=== PATIENT | male | born 1995 | race Two or more races ===

== ENCOUNTER 2022-10-21 11:04 | Day surgery (SDC) | payer OTHER ==
[~2022-10-21 11:04] MED LIST: Lactated Ringers 1,000 ML IV SCH
[2022-10-21] MEDS ORDERED: Lidocaine 2% 5 ML SDV ONE (12:10)
[2022-10-21] MEDS ORDERED: Propofol 200 MG/20 ML SDV ONE (12:10)
[2022-10-21] MEDS ORDERED: Lactated Ringers 1,000 ML IV SCH (13:00)
== END 2022-10-21 13:58 | disposition home or self-care (01) ==
LOC: MW.SDS 11:04
PROVIDERS: ATTEND Surgery
DX: K29.50 Unspecified chronic gastritis without bleeding (principal); B96.81 Helicobacter pylori [H. pylori] as the cause of diseases classified elsewhere; G89.29 Other chronic pain; F41.9 Anxiety disorder, unspecified; Z79.899 Other long term (current) drug therapy; Z83.79 Family history of other diseases of the digestive system
CPT/HCPCS: 43239; J2704; J7120; 00731; J3490

== ENCOUNTER 2023-08-19 14:43 | Emergency (ER) | payer SELFPAY ==
[2023-08-19] MEDS: Alum Hydro/Mag Hydro/Simeth XS 15 ML, Metoclopramide 5 MG, Lidocaine 2% 5 ML PO ONE (15:00)
[2023-08-19] MEDS: Sodium Chloride 0.9% 1,000 ML IV ONE (15:00)
[2023-08-19 15:03] LABS: BASOPHILS ABSOLUTE AUTO 0.05 K/uL (0.00-0.20); BASOPHILS PERCENT AUTO 0.9 % (0.0-1.0); EOSINOPHILS PERCENT AUTO 1.8 % (0.0-6.0); HEMATOCRIT 39.9 % (42.0-52.0); IMMATURE GRAN ABSOLUTE AUTO 0.02 K/uL (0.00-0.05); IMMATURE GRAN PERCENT AUTO 0.4 % (0.0-0.4); LYMPHOCYTES PERCENT AUTO 34.4 % (24.0-44.0); MEAN CORPUSCULAR HEMOGLOBIN 29.9 pg (28.0-32.0); MEAN CORPUSCULAR HGB CONC 35.1 g/dL (32.0-36.0); MEAN CORPUSCULAR VOLUME 85.3 fL (83.0-99.0); MONOCYTES ABSOLUTE AUTO 0.64 K/uL (0.00-0.80); MONOCYTES PERCENT AUTO 11.6 % (0.0-8.0); NEUTROPHILS ABSOLUTE AUTO 2.82 K/uL (1.80-7.70); NEUTROPHILS PERCENT AUTO 50.9 % (41.0-71.0); PLATELET COUNT,PLT 340 K/uL (150-400); RED BLOOD CELL COUNT 4.68 M/uL (4.52-5.90); WHITE BLOOD CELL COUNT,WBC 5.53 K/uL (3.9-11.3)
[2023-08-19 15:25] LABS: A/G RATIO 0.8 (0.9-1.6); ALANINE AMINOTRANSFERASE,ALT 25 IU/L (14-63); ALBUMIN 3.7 g/dL (3.4-5.0); ALKALINE PHOSPHATASE 108 U/L (46-116); ASPARTATE AMNIOTRANSFERASE,AST 21 IU/L (15-37); BILIRUBIN TOTAL 0.2 mg/dL (0.2-1.0); BLOOD UREA NITROGEN,BUN 20 mg/dL (7.0-18.0); CALCIUM 9.1 mg/dL (8.5-10.1); CARBON DIOXIDE,CO2 26.8 mmol/L (21.0-32.0); CHLORIDE,CL 101 mmol/L (98-107); CREATININE 0.9 mg/dL (0.8-1.3); ESTIMATED GFR 119 mL/min (>60); GLUCOSE RANDOM 114 mg/dL (74-106); LIPASE 57 U/L (16-77); PROTEIN TOTAL,TP 8.1 g/dL (6.4-8.2); SODIUM,NA 138 mmol/L (136-148)
[2023-08-19 16:14] LABS: CORONAVIRUS COVID-19 NAA NEGATIVE (NEGATIVE); INFLUENZA A NAA NEGATIVE (NEGATIVE); INFLUENZA B NAA NEGATIVE (NEGATIVE)
== END 2023-08-19 16:06 | disposition home or self-care (01) ==
LOC: MW.ED 14:43
DX: K21.9 Gastro-esophageal reflux disease without esophagitis (principal); Z86.73 Personal history of transient ischemic attack (TIA), and cerebral infarction without residual deficits; Z79.899 Other long term (current) drug therapy
CPT/HCPCS: 0240U; 36415; 80053; 83690; 84484; 85025; 93005; 96360; 99285; A9270; J7030; 93010; 99283

== ENCOUNTER 2023-11-08 11:33 | Inpatient (IN) | payer OTHER ==
[2023-11-08] MEDS: Morphine 2 MG/ML SYRINGE IVPUSH ONE ×2 (11:55→13:27)
[2023-11-08] MEDS: Ondansetron 4 MG/2 ML SDV IVPUSH ONE (11:56)
[2023-11-08] MEDS: Sodium Chloride 0.9% 10 ML Syringe FLUSH PRN (11:56)
[2023-11-08] MEDS: Sodium Chloride 0.9% 2.5 ML Syringe FLUSH PRN (11:56)
[2023-11-08] MEDS: Pantoprazole 80 MG in Sodium Chloride 0.9% 10 ML IVPUSH ONE (11:56)
[2023-11-08 12:00] LABS: BASOPHILS ABSOLUTE AUTO 0.02 K/uL (0.00-0.20); BASOPHILS PERCENT AUTO 0.3 % (0.0-1.0); EOSINOPHILS ABSOLUTE AUTO 0.05 K/uL (0.00-0.45); EOSINOPHILS PERCENT AUTO 0.8 % (0.0-6.0); HEMATOCRIT 37.9 % (42.0-52.0); HEMOGLOBIN 13.5 g/dL (14.0-18.0); IMMATURE GRAN ABSOLUTE AUTO 0.01 K/uL (0.00-0.05); IMMATURE GRAN PERCENT AUTO 0.2 % (0.0-0.4); LYMPHOCYTES ABSOLUTE AUTO 1.74 K/uL (1.00-4.80); LYMPHOCYTES PERCENT AUTO 26.7 % (24.0-44.0); MEAN CORPUSCULAR HEMOGLOBIN 30.3 pg (28.0-32.0); MEAN CORPUSCULAR HGB CONC 35.6 g/dL (32.0-36.0); MEAN PLATELET VOLUME 9.4 fL (9.4-12.4); MONOCYTES ABSOLUTE AUTO 0.54 K/uL (0.00-0.80); MONOCYTES PERCENT AUTO 8.3 % (0.0-8.0); NEUTROPHILS ABSOLUTE AUTO 4.15 K/uL (1.80-7.70); NEUTROPHILS PERCENT AUTO 63.7 % (41.0-71.0); PLATELET COUNT,PLT 245 K/uL (150-400); RED BLOOD CELL COUNT 4.46 M/uL (4.52-5.90); WHITE BLOOD CELL COUNT,WBC 6.51 K/uL (3.9-11.3)
[2023-11-08 12:49] LABS: ALANINE AMINOTRANSFERASE,ALT 24 IU/L (14-63); ALKALINE PHOSPHATASE 101 U/L (46-116); ASPARTATE AMNIOTRANSFERASE,AST 19 IU/L (15-37); BILIRUBIN TOTAL 0.3 mg/dL (0.2-1.0); BLOOD UREA NITROGEN,BUN 10 mg/dL (7.0-18.0); CALCIUM 8.8 mg/dL (8.5-10.1); CARBON DIOXIDE,CO2 29.3 mmol/L (21.0-32.0); CHLORIDE,CL 98 mmol/L (98-107); CREATININE 0.9 mg/dL (0.8-1.3); EST CRCL DRUG DOSING (CG) 126.17 mL/min; GLUCOSE RANDOM 148 mg/dL (74-106); LIPASE 66 U/L (16-77); MAGNESIUM 1.8 mg/dL (1.8-2.4); POTASSIUM,K 3.5 mmol/L (3.5-5.1); SODIUM,NA 137 mmol/L (136-148)
[2023-11-08 12:51] LABS: ESTIMATED GFR 119 mL/min (>60)
[2023-11-08] MEDS: Iopamidol 755 MG/ML 500 ML Multipack Bottle IVPUSH STA (13:19)
[2023-11-08] MEDS: Sodium Chloride 0.9% 1,000 ML IV ONE (13:52)
[2023-11-08] MEDS: Piperacillin/Tazobactam 4.5 GM in Sodium Chloride 0.9% 100 ML IV ONE (13:52)
[2023-11-08] MEDS: Morphine 4 MG/ML Syringe IVPUSH ONE (14:11)
[2023-11-08] MEDS ORDERED: Sodium Chloride 0.9% 20 ML SDV IV PRN (14:17)
[2023-11-08] MEDS ORDERED: Sodium Chloride 0.9% 2.5 ML Syringe FLUSH PRN (14:17)
[2023-11-08] MEDS: HYDROmorphone 1 MG/ML Syringe IVPUSH ONE ×2 (14:17→17:35)
[2023-11-08] MEDS ORDERED: Sodium Chloride 0.9% 10 ML Syringe FLUSH PRN (14:17)
[2023-11-08] MEDS: Lidocaine 2% 11 ML Jelly Filled Syringe MUCMEM STA (14:19)
[2023-11-08] MEDS: Benzocaine 20% Topical Spray UD MUCMEM ONE (14:19)
[2023-11-08] MEDS ORDERED: Dexamethasone 4 MG/ML 5 ML MDV ONE (14:33)
[2023-11-08] MEDS ORDERED: Ondansetron 4 MG/2 ML SDV ONE (14:33)
[2023-11-08] MEDS ORDERED: Sugammadex Sodium 200 MG/2 ML VIAL IV ONE (14:33)
[2023-11-08] MEDS ORDERED: Propofol 200 MG/20 ML SDV ONE (14:33)
[2023-11-08] MEDS ORDERED: Rocuronium Bromide 50 MG/5 ML Syringe ONE (14:33)
[2023-11-08] MEDS ORDERED: Lidocaine 2% 5 ML SDV ONE (14:33)
[2023-11-08] MEDS ORDERED: Ketorolac 30 MG/ML SDV ONE (14:33)
[2023-11-08] MEDS ORDERED: fentaNYL 250 MCG/5 ML SDV ONE (14:34)
[2023-11-08] MEDS ORDERED: Ropivacaine 0.5% 5 MG/ML 30 ML SDV ONE ×2 (14:40→14:41)
[2023-11-08] MEDS ORDERED: Bupivacaine 0.5% 30 ML SDV ONE ×2 (14:52→16:15)
[2023-11-08] MEDS ORDERED: Ketamine HCL/NACL, ISO-OSM 50 MG/5 ML Syringe ONE (15:24)
[2023-11-08] MEDS ORDERED: dexmedeTOMIDine HCl 200 MCG/2 ML SDV ONE (15:43)
[2023-11-08] MEDS ORDERED: diphenhydrAMINE 50 MG/ML SDV IVPUSH PRN (16:59)
[2023-11-08] MEDS ORDERED: Promethazine 25 MG/ML SDV IM PRN (16:59)
[2023-11-08] MEDS: Lactated Ringers 1,000 ML IV SCH (19:03)
[2023-11-08] MEDS: Phenol 1.4% Oral Spray 177 ML Bottle MUCMEM PRN (19:04)
[2023-11-08] MEDS: Ketorolac 30 MG/ML SDV IM SCH (20:55)
[2023-11-08] MEDS: Piperacillin/Tazobactam 4.5 GM in Sodium Chloride 0.9% 100 ML IV SCH (20:56)
[2023-11-09 06:09] LABS: HEMATOCRIT 32.2 % (42.0-52.0); HEMOGLOBIN 11.2 g/dL (14.0-18.0); MEAN CORPUSCULAR HEMOGLOBIN 29.9 pg (28.0-32.0); MEAN CORPUSCULAR HGB CONC 34.8 g/dL (32.0-36.0); MEAN CORPUSCULAR VOLUME 86.1 fL (83.0-99.0); MEAN PLATELET VOLUME 9.3 fL (9.4-12.4); PLATELET COUNT,PLT 247 K/uL (150-400); RED BLOOD CELL COUNT 3.74 M/uL (4.52-5.90); WHITE BLOOD CELL COUNT,WBC 12.26 K/uL (3.9-11.3)
[2023-11-09 06:28] LABS: CALCIUM 8.2 mg/dL (8.5-10.1); CARBON DIOXIDE,CO2 26.4 mmol/L (21.0-32.0); CREATININE 0.9 mg/dL (0.8-1.3); EST CRCL DRUG DOSING (CG) 126.17 mL/min; POTASSIUM,K 3.8 mmol/L (3.5-5.1)
[2023-11-09] MEDS: HYDROmorphone 0.5 MG/0.5 ML Syringe IVPUSH PRN (08:18)
[2023-11-09 08:41] LABS: MAGNESIUM 1.7 mg/dL (1.8-2.4); PHOSPHORUS 5.2 mg/dL (2.6-4.7)
[2023-11-09] MEDS: Enoxaparin 40 MG/0.4 ML Syringe SUBCUT SCH (09:14)
[2023-11-09] MEDS: Magnesium Sulfate/Water 2 GM in Premix Bag 1 BAG IV ONE (09:14)
[2023-11-09] MEDS: Ketorolac 30 MG/ML SDV IVPUSH SCH (09:14)
[2023-11-09] MEDS: Pantoprazole 40 MG in Sodium Chloride 0.9% 10 ML IVPUSH SCH (17:48)
[2023-11-09] MEDS: Dextrose 5%-0.9% NaCl 1,000 ML IV SCH (20:20)
[2023-11-09] MEDS: Acetaminophen 1,000 MG in Premix Bag 1 BAG IV SCH (20:22)
[2023-11-09] MEDS: Ondansetron 4 MG/2 ML SDV IVPUSH PRN (21:12)
[2023-11-10 08:07] LABS: BASOPHILS ABSOLUTE AUTO 0.03 K/uL (0.00-0.20); BASOPHILS PERCENT AUTO 0.3 % (0.0-1.0); EOSINOPHILS ABSOLUTE AUTO 0.07 K/uL (0.00-0.45); EOSINOPHILS PERCENT AUTO 0.7 % (0.0-6.0); HEMATOCRIT 33.4 % (42.0-52.0); HEMOGLOBIN 11.4 g/dL (14.0-18.0); IMMATURE GRAN ABSOLUTE AUTO 0.03 K/uL (0.00-0.05); IMMATURE GRAN PERCENT AUTO 0.3 % (0.0-0.4); LYMPHOCYTES ABSOLUTE AUTO 1.22 K/uL (1.00-4.80); LYMPHOCYTES PERCENT AUTO 12.6 % (24.0-44.0); MEAN CORPUSCULAR HEMOGLOBIN 30.4 pg (28.0-32.0); MEAN CORPUSCULAR HGB CONC 34.1 g/dL (32.0-36.0); MEAN CORPUSCULAR VOLUME 89.1 fL (83.0-99.0); MEAN PLATELET VOLUME 9.1 fL (9.4-12.4); MONOCYTES ABSOLUTE AUTO 0.54 K/uL (0.00-0.80); MONOCYTES PERCENT AUTO 5.6 % (0.0-8.0); NEUTROPHILS ABSOLUTE AUTO 7.83 K/uL (1.80-7.70); NEUTROPHILS PERCENT AUTO 80.5 % (41.0-71.0); PLATELET COUNT,PLT 268 K/uL (150-400); RED BLOOD CELL COUNT 3.75 M/uL (4.52-5.90); WHITE BLOOD CELL COUNT,WBC 9.72 K/uL (3.9-11.3)
[2023-11-10 08:29] LABS: CALCIUM 8.4 mg/dL (8.5-10.1); CARBON DIOXIDE,CO2 26.1 mmol/L (21.0-32.0); CREATININE 1.1 mg/dL (0.8-1.3); EST CRCL DRUG DOSING (CG) 103.23 mL/min; MAGNESIUM 2.2 mg/dL (1.8-2.4); POTASSIUM,K 3.7 mmol/L (3.5-5.1)
[2023-11-11] MEDS: Acetaminophen/HYDROcodone 325-10 MG Tab PO PRN (23:36)
[2023-11-12 06:03] LABS: BASOPHILS ABSOLUTE AUTO 0.04 K/uL (0.00-0.20); BASOPHILS PERCENT AUTO 0.4 % (0.0-1.0); EOSINOPHILS ABSOLUTE AUTO 0.33 K/uL (0.00-0.45); EOSINOPHILS PERCENT AUTO 3.7 % (0.0-6.0); HEMATOCRIT 31.8 % (42.0-52.0); HEMOGLOBIN 10.8 g/dL (14.0-18.0); IMMATURE GRAN ABSOLUTE AUTO 0.03 K/uL (0.00-0.05); IMMATURE GRAN PERCENT AUTO 0.3 % (0.0-0.4); LYMPHOCYTES ABSOLUTE AUTO 1.49 K/uL (1.00-4.80); LYMPHOCYTES PERCENT AUTO 16.7 % (24.0-44.0); MEAN CORPUSCULAR HEMOGLOBIN 29.8 pg (28.0-32.0); MEAN CORPUSCULAR VOLUME 87.6 fL (83.0-99.0); MEAN PLATELET VOLUME 8.8 fL (9.4-12.4); MONOCYTES ABSOLUTE AUTO 0.86 K/uL (0.00-0.80); MONOCYTES PERCENT AUTO 9.6 % (0.0-8.0); NEUTROPHILS ABSOLUTE AUTO 6.17 K/uL (1.80-7.70); NEUTROPHILS PERCENT AUTO 69.3 % (41.0-71.0); PLATELET COUNT,PLT 313 K/uL (150-400); RED BLOOD CELL COUNT 3.63 M/uL (4.52-5.90); WHITE BLOOD CELL COUNT,WBC 8.92 K/uL (3.9-11.3)
[2023-11-12 06:29] LABS: CALCIUM 8.3 mg/dL (8.5-10.1); CARBON DIOXIDE,CO2 24.2 mmol/L (21.0-32.0); CREATININE 0.9 mg/dL (0.8-1.3); EST CRCL DRUG DOSING (CG) 126.17 mL/min; POTASSIUM,K 3.4 mmol/L (3.5-5.1)
[2023-11-12] MEDS ORDERED: Sodium Chloride 0.9% 2.5 ML Syringe FLUSH PRN (10:32)
[2023-11-12] MEDS ORDERED: Sodium Chloride 0.9% 10 ML Syringe FLUSH PRN (10:32)
[2023-11-12] MEDS: Carboxymethylcellulose Sodium 0.5% Ophth Soln 0.4 ML UD Box of 30 EYEBOTH PRN (15:09)
== END 2023-11-13 13:20 | disposition home or self-care (01) | DRG 326 ==
LOC: MW.ED 11:33 → MW.SDS 14:08 → MW.MS 15:25
PROVIDERS: ADMIT Surgery; ATTEND Surgery
PROC: 0DQ70ZZ Repair Stomach, Pylorus, Open Approach (ICD-10-PCS; principal; 2023-11-08 14:58)
DX: K25.5 Chronic or unspecified gastric ulcer with perforation (principal); K65.9 Peritonitis, unspecified; B96.81 Helicobacter pylori [H. pylori] as the cause of diseases classified elsewhere; K21.9 Gastro-esophageal reflux disease without esophagitis; F41.9 Anxiety disorder, unspecified; Z86.73 Personal history of transient ischemic attack (TIA), and cerebral infarction without residual deficits
CPT/HCPCS: 00790; 36415; 64488; 74018; 74018-26; 74177; 74177-26; 80048; 80053; 83690; 83735; 84100; 84484; 85025; 85027; 86850; 86900; 86901; 87324; 93005; 96365; 96375; 96376; 99285-25; 99291; A9270-GY; C9113; J0131; J0665; J1100; J1170; J1650; J1885; J2270; J2405; J2543; J2704; J2795; J3010; J3360; J3475; J3490; J7030; J7042; J7120; Q9967